=== PATIENT | female | born 1960 | race Caucasian/White ===

== ENCOUNTER → 2020-01-23 14:51 | Outpatient (CLI) | payer OTHER, SELFPAY ==
--- NOTE | 2020-01-23 15:11 | RAD_ITS ---
STUDY: X-RAY - PELVIS REASON FOR EXAM: Female, 59 years old. inflammatory polyarthropathy TECHNIQUE: One view of the pelvis was obtained. COMPARISON: None. FINDINGS: There is a non-specific bowel gas pattern. Surgical clips are seen in the left inguinal region. Normal bilateral iliac wings, sacroiliac joints and visualized sacrum. Normal visualized bilateral superior and inferior pubic rami. Normal pubic symphysis. Normal ischial tuberosities. Normal visualized right femoral head. Normal right acetabulum. Normal right hip joint. Normal visualized left femoral head. Normal left acetabulum. Normal left hip joint. RAD/Pelvis 1 or 2 Views IMPRESSION: Normal x-ray examination of the pelvis. Electronically Signed: Pedro Solano MD at 22:31 EST , Service support ,
[2020-01-23 17:45] LABS: Absolute Lymphocyte Count 2.48 X10^3/uL (0.83-4.51); Absolute Neutrophil Count 5.9 X10^3/uL (2.0-7.7); Basophil# 0.12 X10^3/uL; Basophil% 1.3 % (0-1); Eosinophil# 0.36 X10^3/uL; Eosinophils% 3.8 % (0-5); Hematocrit 42.3 % (37-47); Hemoglobin 13.4 g/dL (12.0-15.0); Lymphocyte # 2.48 X10^3/ul (4.0); Lymphocyte % 26.1 % (19-41); Mean Corp Hgb Conc 31.7 g/dL (32-36); Mean Corpuscular Hgb 27.6 pg (27.0-32.0); Mean Corpuscular Volume 87.2 fL (81-99); Mean Platelet Vol. 10.3 fl (6.2-12.0); Monocyte# 0.61 X10^3/uL; Monocyte% 6.4 % (0-10); NRBC Flagged by Analyzer 0 % (0-5); Neutrophil # 5.88 X10^3/uL (2.7-7.7); Platelet Count 399 K/mm3 (150-450); RBC Distribution Width CV 13.7 % (11.6-14.6); Red Blood Count 4.85 M/mm3 (4.2-5.4); White Blood Count 9.5 K/mm3 (4.4-11.0)
[2020-01-23 17:59] LABS: ALB/GLOB Ratio 0.9 RATIO (0.9-2.4); AST(SGOT) 25 U/L (15-37); Alanine Aminotransfer ALT/SGPT 27 U/L (13-56); Albumin, Serum 3.6 g/dL (3.2-5.0); Alkaline Phosphatase 142 U/L (45-117); Anion Gap 7 (5-15); BUN 13 mg/dL (7-18); BUN/Creat Ratio 16.3 RATIO (10-20); CRP < 2.90 mg/L (0.0-3.0); Calcium,Total 9.1 mg/dL (8.5-10.1); Chloride 104 mmol/L (98-107); EST Glomerular Filtration Rate 78 mL/min (>60); Est Glom Filt Rate - Afr Amer 95 mL/min (>60); Globulin 4.1 g/dL (2.2-4.2); Glucose 88 mg/dL (74-106); Potassium 3.8 mmol/L (3.5-5.1); Protein, Total 7.7 g/dL (6.4-8.2); Rheumatoid Factor < 10.0 IU/mL (<15); Sodium Level 140 mmol/L (136-145)
[2020-01-23 18:18] LABS: Erythrocyte Sedimentation Rate 14 mm/hr (0-30)
[2020-01-26 09:38] LABS: Hepatitis B Surface Antibody Non-Reactive; Hepatitis B Surface Antigen Non-Reactive (Nonreactive); Hepatitis C Antibody Non-Reactive (Nonreactive)
[2020-01-26 18:07] LABS: ANTINUCLEAR ANTIBODIES DIRECT Negative (Negative)
[2020-01-28 12:07] LABS: QNTFERON TB Mitogen Value > 10.00 IU/mL (.); QNTFERON TB Nil Value 0.02 IU/mL (.); QNTFERON TB1+ Ag Value 0.03 IU/mL (.); QNTFERON TB2+ Ag Value 0.02 IU/mL (.)
[2020-01-28 16:35] LABS: CCP IgG Antibodies 10 units (0-19); HLA B27 Negative (.); Hepatitis B Core AB IgM Negative (Negative); QNTIFERON TB Positive Criteria Negative (Negative)
== END ==
PROVIDERS: PCP Family Medicine; Referring Provider Internal Medicine Rheumatology; Visit Provider Internal Medicine Rheumatology
DX: M06.4 Inflammatory polyarthropathy (principal); M79.7 Fibromyalgia; M18.0 Bilateral primary osteoarthritis of first carpometacarpal joints; M21.40 Flat foot [pes planus] (acquired), unspecified foot; K21.9 Gastro-esophageal reflux disease without esophagitis; K22.70 Barrett's esophagus without dysplasia; K44.9 Diaphragmatic hernia without obstruction or gangrene; Z85.71 Personal history of Hodgkin lymphoma; Z92.21 Personal history of antineoplastic chemotherapy
CPT/HCPCS: 36415; 72170; 80053; 81374; 85025; 85652; 86038; 86140; 86200; 86431; 86480; 86705; 86706; 86803; 87340

== ENCOUNTER 2020-06-15 13:46 | Emergency (ER) | payer OTHER, SELFPAY ==
[2020-06-15] VITALS (8 sets, daily range): BP systolic 169–201; BP diastolic 70–94; PULSE 55–61; RESP 13–18; TEMP 37; O2SAT 98–100; BMI 39.6
--- NOTE | 2020-06-15 14:06 | EKG12_ITS ---
Test Reason : REPEAT CP Blood Pressure : / mmHG Vent. Rate : 055 BPM Atrial Rate : 055 BPM P-R Int : 134 ms QRS Dur : 088 ms QT Int : 484 ms P-R-T Axes : 045 034 046 degrees QTc Int : 463 ms Sinus bradycardia Otherwise normal ECG Confirmed by NINO SIMS ([id number]), fan mail editor CHRYSTAL THOMAS ([id number]) on 06/21/2020 12:11:37 PM Referred By: WALTER Confirmed By:NINO SIMS
--- NOTE | 2020-06-15 14:06 | RAD_ITS ---
STUDY: X-RAY CHEST REASON FOR EXAM: Female, 60 years old. CHEST PAIN, WAS IN AFIB YESTERDAY -- CP TODAY TECHNIQUE: Single AP portable view of the chest. COMPARISON: None. FINDINGS: EKG leads overlie the chest The lungs are clear and expanded. There is no demonstrated pleural abnormality. Sternal cerclage wires and vascular clips are present from a prior sternotomy and coronary artery bypass graft procedure (CABG). Normal mediastinum and fransisco. Normal visualized pulmonary arteries. Normal visualized aortic arch and descending thoracic aorta. Normal visualized thoracic spine. Normal visualized ribs, clavicles, and shoulders. There is no demonstrated abnormality of the visualized soft tissue structures of the upper abdomen. RAD/Chest 1 View (Portable) IMPRESSION: No acute pulmonary process Electronically Signed: Samuel Escobedo MD at 15:06 EDT , Service support ,
[2020-06-15] MEDS: Nitroglycerin SL (ED/IMG/CATH) 0.4 MG TABLET SUBLINGUAL (14:23)
[2020-06-15] MEDS: 0.9% Normal Saline 1,000 ML 150 ML IV (14:24)
[2020-06-15 14:35] LABS: Absolute Lymphocyte Count 2.84 X10^3/uL (0.83-4.51); Absolute Neutrophil Count 6.2 X10^3/uL (2.0-7.7); Basophil# 0.07 X10^3/uL; Basophil% 0.7 % (0-1); Eosinophil# 0.18 X10^3/uL; Eosinophils% 1.8 % (0-5); Hematocrit 42.1 % (37-47); Hemoglobin 13.2 g/dL (12.0-15.0); Lymphocyte # 2.84 X10^3/ul (4.0); Lymphocyte % 28.2 % (19-41); Mean Corp Hgb Conc 31.4 g/dL (32-36); Mean Corpuscular Hgb 28.1 pg (27.0-32.0); Mean Corpuscular Volume 89.6 fL (81-99); Mean Platelet Vol. 10.1 fl (6.2-12.0); NRBC Flagged by Analyzer 0 % (0-5); Neutrophil % 61.6 % (47-70); Platelet Count 375 K/mm3 (150-450); RBC Distribution Width SD 48.2 fl (35.1-43.9); White Blood Count 10.1 K/mm3 (4.4-11.0)
--- NOTE | 2020-06-15 14:46 | ED.DCSUM_ITS ---
- ER Visit Summary Date of Service: 06/15/20 Chief Complaint: Chest pain History of Present Illness: The patient is a [address] Hamilton Liao. Her helminthology teacher is Dr. De Jesus in [place]. Reports that at 1:00 this afternoon while at rest she had the onset of substernal chest pain that radiates up into her neck into her right shoulder. She describes it as a pressure. 7 on 10 at worst and 3-10 currently. Is worsened by nothing. However, she did not walk with this. Is also relieved by nothing. She has had nausea without vomiting. No diaphoresis or shortness of breath. No palpitations or lightheadedness. Patient reports that she has a history of atrial fibrillation and is on Eliquis and sotalol. She states she was in and out of atrial fibrillation yesterday. She denies any chest pain or change in dyspnea exertion in the past month. Physical Examination: Vitals: Stable. Afebrile. General: Well-nourished and well-developed. Head: Normocephalic atraumatic. Neck: Supple, no lymphadenopathy. No JVD. Nontender. Cardiovascular: Regular rate and rhythm. No murmurs. Respiratory: No respiratory distress. Clear to auscultation bilaterally. Abdominal: Soft, nontender, nondistended, normal bowel sounds. No guarding, rebound, or peritoneal signs. Back: Nontender. Extremities: Nontender, no edema. Skin: Normal color, no rash. Neurologic: Alert and oriented ?3. Cranial nerves II through XII are intact. Normal strength and sensation. Psych: Normal affect. Test Results: EKG sinus bradycardia 57 with no acute changes. CBC is normal. Chem-7 shows a CO2 of 34. Initial troponin is negative. Repeat troponin is negative. Repeat EKG is unchanged. Clinical Impression(s) from Imaging Studies Chest X-Ray 06/15/20 14:06 IMPRESSION: No acute pulmonary process Electronically Signed: Samuel Escobedo MD at 15:06 EDT , Service support , Abdomen CTA 06/15/20 15:48 IMPRESSION: 1. No demonstrated hemodynamically significant stenosis or occlusion or aneurysm or dissection. Mild scattered calcified plaque is present. 2. No visualized periaortitis or evidence of leakage or retroperitoneal hemorrhage. 3. No demonstrated acute or significant intra-abdominal process. Electronically Signed: Gurmeet Hahn MD at 16:34 EDT , Service support , Chest CTA 06/15/20 15:48 IMPRESSION: 1. No demonstrated hemodynamically significant stenosis or occlusion or aneurysm or dissection. Mild scattered calcified plaque is present. 2. No visualized periaortitis or evidence of leakage or retroperitoneal hemorrhage. 3. No demonstrated acute or significant intra-abdominal process. Electronically Signed: Gurmeet Hahn MD at 16:34 EDT , Service support , Emergency Department Course and Treatment: Patient was given aspirin by squad. She was given a sublingual nitroglycerin here and her pain went from a 3 to a 0. She had an inch of Nitropaste placed. She was given a dose of ibuprofen for headache following the nitro. Treatment Plan: The patient is resting comfortably. She was discussed with her helminthology teacher, Dr. De Jesus, who feels comfortable having the patient discharged instructed to follow-up the office as soon as possible. Return to the emergency department for any worsening symptoms. Disposition: To home in improved and stable condition. Impression: 1. Chest pain, uncertain cause. 2. DENISE score of 4. This note was generated with [employer] dictation software. It may contain incorrect words, spelling, and punctuation that were not noted in review of the chart prior to signing ED Disposition - Plan for ED Patient: Instructions: ED Chest Pain Atypical Unkn Cause Additional Instructions: Follow-up with Dr. De Jesus as soon as possible.
[2020-06-15 14:51] LABS: Anion Gap 2 (5-15); BUN 11 mg/dL (7-18); BUN/Creat Ratio 12.8 RATIO (10-20); Calcium,Total 9.3 mg/dL (8.5-10.1); Chloride 105 mmol/L (98-107); Creatinine, Serum 0.86 mg/dL (0.55-1.02); EST Glomerular Filtration Rate 72 mL/min (>60); Est Glom Filt Rate - Afr Amer 87 mL/min (>60); Estimated Creatinine Clearance 63.38 ml/min; Glucose 97 mg/dL (74-106); Potassium 4.1 mmol/L (3.5-5.1); Sodium Level 141 mmol/L (136-145)
[2020-06-15] MEDS: Ibuprofen 600 MG Tablet PO (15:03)
[2020-06-15] MEDS: Nitroglycerin Oint 1 INCH PACKET TRANSDERM. (15:04)
--- NOTE | 2020-06-15 15:48 | CT_ITS ---
STUDY: CTA CHEST REASON FOR EXAM: Female, 60 years old. SPLITTING CP WHILE AT DR OFFICE, ? DISSECTION, HAD ABLATION 11/13, A-FIB, CABG, ON ELIQUIS, FORMER SMOKER, HTN, SLEEP APNEA RADIATION DOSAGE (If Supplied By Facility): CTDIvol = ( 16.5 ) mGy, DLP = ( 949.05 ) mGycm TECHNIQUE: The examination was performed with the intravenous administration of 100ML ISOVUE 370. Post-processing of the angiographic images was performed, with multiplanar reformation and 3D reconstruction. Individualized dose optimization techniques were used for this CT. COMPARISON: CTA of the abdomen dated June 15, 2020 FINDINGS: Normal enhancement of the main pulmonary artery and right and left pulmonary arteries. Normal enhancement of the bilateral peripheral pulmonary arteries. There is no demonstrated pulmonary embolism. There is atherosclerotic calcification of the aortic arch with tortuosity. There is no demonstrated aortic dissection or aneurysm. Sternal cerclage wires and vascular clips are present from a prior sternotomy and coronary artery bypass graft procedure (CABG). Normal heart size. No pericardial effusion. Normal mediastinum. Normal hilar regions. Normal visualized trachea and bronchi. The lungs are well expanded. Normal pulmonary parenchyma. No demonstrated consolidation or pulmonary edema or pleural effusion. No nodules. Normal pleura. Normal chest wall structures. There are degenerative changes of thoracic spine. Unremarkable visualized upper abdomen. Hiatal hernia noted. CT/CTA Chest W/WO Contrast IMPRESSION: 1. No demonstrated pulmonary embolism or arterial dissection. 2. No demonstrated consolidation or pulmonary edema or pleural effusion. No nodules. Electronically Signed: Gurmeet Hahn MD at 16:44 EDT , Service support ,
--- NOTE | 2020-06-15 15:48 | CT_ITS ---
STUDY: CTA OF THE ABDOMEN REASON FOR EXAM: Female, 60 years old. SPLITTING CP, ? DISSECTION, HX-CABG,SLEEP APNEA, ABLATION 11/13, FORMER SMOKER, HTN, ON ELIQUIS RADIATION DOSAGE (If Supplied By Facility): CTDIvol = ( 16.5 ) mGy, DLP = ( 949.05 ) mGycm TECHNIQUE: Axial CT angiography multi-detector data acquisition was obtained following intravenous administration of 100ML ISOVUE 370. Axial images and MIP images were reconstructed from the axial data set. Post-processing of the angiographic images was performed, with multiplanar reformation and 3D reconstruction. Individualized dose optimization techniques were used for this CT. TECHNICAL QUALITY: Good COMPARISON: None. Descriptors of Narrowing: None (0%) Mild (< 50%) Moderate (50-70%) Severe (70-90%) Subtotal/Total Occlusion (90-100%) Non-Evaluable (technically non-diagnostic FINDINGS: Abdominal aorta: No demonstrated hemodynamically significant stenosis or occlusion or aneurysm or dissection. Mild scattered calcified plaque is present. No visualized periaortitis or evidence of leakage or retroperitoneal hemorrhage. Celiac and superior mesenteric arteries: No demonstrated narrowing. Inferior mesenteric artery: No demonstrated narrowing. Right renal artery(arteries): No demonstrated narrowing. Left renal artery(arteries): No demonstrated narrowing. Right common iliac artery: No demonstrated narrowing. Right external iliac artery: No demonstrated narrowing. Right internal iliac artery: No demonstrated narrowing. Left common iliac artery: No demonstrated narrowing. Left external iliac artery: No demonstrated narrowing. Left internal iliac artery: No demonstrated narrowing. NONVASCULAR FINDINGS: The visualized lung bases are unremarkable. Median sternotomy wires and CABG clips are present. Normal liver. Normal gallbladder and extrahepatic biliary system. Normal spleen. Normal pancreas. Normal bilateral adrenal glands. Normal right kidney. Normal left kidney. A moderate size hiatal hernia is present. Normal small intestine. Normal colon. There is non-visualization of the appendix. Normal inferior vena cava. Normal retroperitoneum. Normal abdominal wall. There are diffuse degenerative changes of the visualized lumbar spine. CT/CTA Abdomen W/WO Contrast IMPRESSION: 1. No demonstrated hemodynamically significant stenosis or occlusion or aneurysm or dissection. Mild scattered calcified plaque is present. 2. No visualized periaortitis or evidence of leakage or retroperitoneal hemorrhage. 3. No demonstrated acute or significant intra-abdominal process. Electronically Signed: Gurmeet Hahn MD at 16:34 EDT , Service support ,
[2020-06-15] MEDS: Morphine 4 MG/ML Syringe IV (16:42)
--- NOTE | 2020-06-15 16:44 | EKG12_ITS ---
Test Reason : CP Blood Pressure : / mmHG Vent. Rate : 057 BPM Atrial Rate : 057 BPM P-R Int : 124 ms QRS Dur : 090 ms QT Int : 476 ms P-R-T Axes : 033 033 038 degrees QTc Int : 463 ms Sinus bradycardia Otherwise normal ECG Confirmed by NINO SIMS ([id number]), editor at large CHRYSTAL THOMAS ([id number]) on 06/21/2020 12:11:49 PM Referred By: FAB Confirmed By:NINO SIMS
== END 2020-06-15 19:39 | disposition home or self-care (01) ==
LOC: ED 14:54
PROVIDERS: Emergency Provider Emergency Medicine; PCP Family Medicine
DX: R07.9 Chest pain, unspecified (principal); R00.1 Bradycardia, unspecified; Z79.01 Long term (current) use of anticoagulants; I48.91 Unspecified atrial fibrillation; Z79.899 Other long term (current) drug therapy; Z79.82 Long term (current) use of aspirin; R11.0 Nausea; I25.10 Atherosclerotic heart disease of native coronary artery without angina pectoris; I10 Essential (primary) hypertension; G47.33 Obstructive sleep apnea (adult) (pediatric); Z95.1 Presence of aortocoronary bypass graft
CPT/HCPCS: 71045; 71275; 74175; 80048; 84484; 85025; 93005; 96361; 96374; 99285; J7030; Q9967; A4216

== ENCOUNTER 2021-03-25 22:44 | Emergency (ER) | payer OTHER, SELFPAY ==
[2020-06-15 13:48] VITALS: BMI 39.6
[2021-03-25 22:45] VITALS: BP 184/86; PULSE 63; RESP 18; TEMP 35.8; O2SAT 100; BMI 36.8
--- NOTE | 2021-03-25 22:59 | CT_ITS ---
EXAM: CT CHEST, ABDOMEN AND PELVIS WITH INTRAVENOUS CONTRAST : 1960 CLINICAL INDICATION: Fall off horse, upper abd pain/back pain TECHNIQUE: Helically acquired images were obtained of the chest, abdomen and pelvis with intravenous contrast. This CT exam was performed using one or more of the following dose reduction techniques: automated exposure control, adjustment of the mA and/or kV according to patient size, and/or use of iterative reconstruction technique. This report was created using [employer] report generation technology. CONTRAST: IV 100mL Isovue-300 COMPARISON: 06/15/2020 FINDINGS: CHEST: LUNGS AND PLEURAL SPACES: Unremarkable. No mass. No consolidation or edema. No pleural effusion or thickening. No pneumothorax. HEART: Unremarkable. Heart size is normal. No pericardial effusion. MEDIASTINUM: There is a small to moderate hiatal hernia. No mediastinal or hilar adenopathy. Esophagus is unremarkable. THYROID: Unremarkable. No thyroid lesions. ABDOMEN: LIVER: Unremarkable. Homogeneous. No focal mass. GALLBLADDER AND BILE DUCTS: Unremarkable. No calcified gallstones. No gallbladder distention or wall edema. No intra- or extrahepatic biliary ductal dilation. PANCREAS: Unremarkable. No focal cystic or solid mass. SPLEEN: Unremarkable. Normal size without focal cystic or solid mass. ADRENALS: Unremarkable. No nodules. KIDNEYS AND URETERS: Unremarkable. Normal renal size and position. No hydronephrosis. STOMACH AND BOWEL: Unremarkable. No stomach or bowel distention. No focal inflammatory change. PELVIS: APPENDIX: No evidence of acute appendicitis. BLADDER: Unremarkable. REPRODUCTIVE: Unremarkable as visualized. No mass. CHEST, ABDOMEN and PELVIS: INTRAPERITONEAL SPACE: Unremarkable. No ascites or other fluid collection. No free air. BONES/JOINTS: Unremarkable. No suspicious lytic or blastic abnormality. SOFT TISSUES: Unremarkable. No discrete abdominal or pelvic wall hernia. VASCULATURE: Unremarkable. Aorta is non-dilated. No aortic dissection. No obvious central pulmonary embolism although this study was not performed with the pulmonary embolism protocol. LYMPH NODES: Unremarkable. No enlarged lymph nodes. CT/CT Chest, Abd, Pel w/Contrast IMPRESSION: No acute findings in the chest, abdomen or pelvis. Individualized dose optimization techniques were used for this CT. at 0013 Reported and signed by: Stanislaw Meyer MD Electronically Signed: Stanislaw Meyer MD at 0:12 EDT Tel , Service support ,
--- NOTE | 2021-03-25 23:03 | EX.ED.DYSGE1 ---
HPI History of Present Illness Chief Complaint: Trauma Informant: patient Narrative Narrative: Patient is a 61-year-old female who presents to the emergency department after a fall off of a horse. She states that she landed directly on her back. She did feel a pop whenever she landed. She is complaining of right-sided back pain in the lower thoracic region. She is also having epigastric abdominal pain. She currently rates her pain as an 8 out of 10. Sometimes the pain does spasm and gets up to a 20 out of 10. She did take a muscle relaxer as well as Tylenol which has not given her significant relief. She believes she did hit her head but is denying a headache or any neck pain. She denies any pain in her extremities. She has been able to ambulate on her own power. She denies any chest pain or shortness of breath. No urinary symptoms. She is on aspirin as well as Eliquis with a history of atrial fibrillation. [facility] Medical History (Updated 03/26/21 @ 00:[address] Frank Stewart, ) Anemia Atrial fibrillation Verma's esophagus Gastroparesis Hiatal hernia High cholesterol Hypertension Lymphoma Home Medications Potassium Chloride [Klor-Con M20] 20 meq PO BID 06/15/20 [History Last Taken 06/15/20] Prednisone 10 mg PO DAILY PRN PRN 06/15/20 [History Last Taken 06/13/20] acarbose 50 mg PO TIDCM 06/15/20 [History Last Taken 06/14/20] apixaban 5 mg PO BID 06/15/20 [History Last Taken 06/15/20] atorvastatin 40 mg PO QHS 06/15/20 [History Last Taken 06/14/20] duloxetine 60 mg PO DAILY 06/15/20 [History Last Taken 06/14/20] folic acid 2 mg PO DAILY 06/15/20 [History Last Taken 06/15/20] leucovorin calcium 15 mg PO WE 06/15/20 [History Last Taken 06/09/20] losartan 100 mg PO DAILY 06/15/20 [History Last Taken 06/15/20] methotrexate sodium (PF) 0.75 ml IJ WE 06/15/20 [History Last Taken 06/09/20] mirtazapine 15 mg PO QHS 06/15/20 [History Last Taken 06/14/20] nitroglycerin 0.4 mg SUBLINGUAL Q5M PRN 06/15/20 [History Last Taken Unknown] plecanatide 3 mg PO QHS 06/15/20 [History Last Taken 06/14/20] amlodipine 2.5 mg PO DAILY 03/25/21 [History Last Taken Unknown] hydroxychloroquine [Plaquenil] 200 mg PO DAILY 03/25/21 [History Last Taken Unknown] Allergy/AdvReac Type Severity Reaction Status Date / Time PLASTIC TAPE AdvReac Rash Uncoded 03/25/21 22:50 Surgical History H/O: hysterectomy History of [place] fundoplication Hx of appendectomy Hx of CABG Social History Smoking Status: Former smoker ROS ROS ED Constitutional Constitutional ED: Denies chills or fever(s) Eyes Eyes: Denies change in vision ENT ENT ED: Denies epistaxis or rhinorrhea Cardiovascular Cardiovascular: Denies chest pain or palpitations Respiratory/Chest Respiratory/Chest: Denies cough, dyspnea or dyspnea on exertion Gastrointestinal Gastrointestinal: Reports abdominal pain; Denies diarrhea, nausea or vomiting Genitourinary Genitourinary ED: Denies hematuria Musculoskeletal Musculoskeletal: Reports back pain; Denies neck pain Integumentary Denies Abrasions or rash Neurologic Neurologic: Denies dizziness, headache(s) or weakness EXAM Physical Exam Const Vital Signs: 03/25/21 22:45 03/25/21 22:56 03/26/21 00:22 Temperature 96.5 F L Temperature Source Temporal Pulse Rate 63 68 Respiratory Rate 18 12 Respiratory Effort Normal Non-Labored Respiratory Depth Normal Respiratory Pattern Normal Blood Pressure 184/86 H 175/95 H Blood Pressure Mean 118 121 Pulse Ox 100 95 Oxygen Delivery Method Room Air Room Air Positive well nourished and well developed General Appearance ED: well developed and NAD HEENT Reports normocephalic, head/scalp atraumatic and moist mucous membranes Eyes PERRL and EOMs intact bilaterally Neck no lymphadenopathy and supple General: Negative for tenderness Chest Wall inspection of chest normal and palpation of chest normal Resp normal respiratory effort and clear to auscultation bilaterally Auscultation: Negative for rales, rhonchi or wheezes Cardio regular rate, regular rhythm and no murmurs GI normal to inspection, nondistended, normoactive bowel sounds Palpation: soft and tender epigastric and RUQ; Negative for guarding or rebound tenderness present Back/Spine no CVA tenderness Cervical Spine: Negative for cervical spine tenderness Thoracic Spine / Upper Back: paraspinal muscle tenderness right; Negative for thoracic spinal tenderness Lumbar Spine / Lower Back: Negative for lumbar spinal tenderness Extremity normal to inspection Extremity Narrative: Ambulate under her own power. 5 out of 5 muscle strength throughout. Neurovascularly intact. General Extremety ED: Negative for edema or tenderness General Extremity: Negative for edema Neuro oriented x3, CN's II-XII intact bilaterally and no sensory deficits noted Sensorium / Orientation: alert Motor Exam: strength 5/5 throughout Psych mental status grossly normal Skin no rashes or lesions noted Trauma: Negative for abrasion Wounds: Negative for wounds noted MDM MDM MDM Narrative Medical decision making narrative: Patient presents to the ED after a fall off of a horse around 8 PM. She is complaining of right-sided back pain as well as epigastric abdominal pain. She is anticoagulated. She believes she did hit her head but denies any headache, neck pain. Vital signs show she is hypertensive but otherwise are normal. She is in no acute distress. She is complaining of significant pain so we will treat this with morphine. Will check basic lab work as well as CT imaging. Patient's lab work-up did not reveal the patient to be anemic. Her lipase is within normal limits. Troponin is negative. CT imaging did not reveal any acute intracranial abnormality. CT scan of the chest/abdomen/pelvis did not show any acute traumatic finding. At this time do believe patient is stable for discharge. Will recommend symptomatic treatment in the meantime. She is to follow-up with her PCP. If she develops any worsening pain she is to return to the emergency department. She understands and is agreeable this plan. Will discharge home in stable condition. All questions answered. Lab Data Labs: Laboratory Results - last 24 hr 03/25/21 03/25/21 23:15 23:15 WBC 14.3 H RBC 4.79 Hgb 13.7 Hct 42.4 MCV 88.5 MCH 28.6 MCHC 32.3 RDW Std Deviation 50.4 H RDW Coeff of Flor 15.6 H Plt Count 306 MPV 9.8 Immature Gran % (Auto) 1.100 H Neut % (Auto) 77.9 H Lymph % (Auto) 13.9 L Dolores % (Auto) 5.7 Eos % (Auto) 0.9 Baso % (Auto) 0.5 Absolute Neuts (auto) 11.1 H Absolute Lymphs (auto) 1.99 Nucleated RBC % 0 Sodium 140 Potassium 3.6 Chloride 107 Carbon Dioxide 26.0 Anion Gap 7 BUN 11 Creatinine 0.74 Estim Creat Clear Calc 72.75 Est GFR (MDRD) Af Amer 102 Est GFR (MDRD) Non-Af 85 BUN/Creatinine Ratio 14.8 Glucose 108 H Calcium 8.9 Total Bilirubin 0.50 AST 31 ALT 49 Alkaline Phosphatase 128 H Troponin I 0.024 Total Protein 7.7 Albumin 3.8 Globulin 3.9 Albumin/Globulin Ratio 1.0 Lipase 73 Radiography Diagnostic Testing: Radiology Impression Chest/Abdomen/Pelvis CT 03/25/21 22:59 IMPRESSION: No acute findings in the chest, abdomen or pelvis. Individualized dose optimization techniques were used for this CT. at 0013 Reported and signed by: Stanislaw Meyer MD Electronically Signed: Stanislaw Meyer MD at 0:12 EDT Tel , Service support , Brain CT 03/25/21 23:38 IMPRESSION: Negative head/brain CT without intravenous contrast. Individualized dose optimization techniques were used for this CT. at 0010 Reported and signed by: Stanislaw Meyer MD Electronically Signed: Stanislaw Meyer MD at 0:09 EDT Tel , Service support , Discharge Plan Triage Chief Complaint: Trauma Other Complaint: Fall ED Provider: Frank Stewart Dx/Rx/DC Orders Clinical Impression: Fall from horse, Abdominal pain, Back pain Instructions: ED RICE Prescriptions: No Action losartan 50 MG tablet 100 mg PO DAILY RF: 0 atorvastatin 40 mg tablet 40 mg PO QHS RF: 0 acarbose 50 MG tablet 50 mg PO TIDCM RF: 0 leucovorin calcium 15 mg tablet 15 mg PO WE RF: 0 nitroglycerin 0.4 MG tablet, sublingual 0.4 mg sublingual Q5M PRN (Reason: Chest Pain) RF: 0 folic acid 1 MG tablet 2 mg PO DAILY RF: 0 mirtazapine 15 MG tablet 15 mg PO QHS RF: 0 methotrexate sodium (PF) 25 MG/ML solution 0.75 ml IJ WE RF: 0 duloxetine 60 MG capsule,delayed release(DR/EC) 60 mg PO DAILY RF: 0 apixaban 5 mg tablet 5 mg PO BID RF: 0 plecanatide 3 mg tablet 3 mg PO QHS RF: 0 Potassium Chloride [Klor-Con M20] 20 MEQ Tab.Er.Prt 20 meq PO BID RF: 0 Prednisone 10 MG tablet 10 mg PO DAILY PRN PRN (Reason: arthritis) RF: 0 amlodipine 2.5 mg Tablet 2.5 mg PO DAILY RF: 0 hydroxychloroquine [Plaquenil] 200 mg Tablet 200 mg PO DAILY RF: 0 Primary Care Provider: Care Physician,No Primary Referrals: Care Physician,No Primary [Primary Care Provider] - 2 Days Disposition Disposition: Home, self care Discharge Date/Time: 03/26/21 00:55
[2021-03-25] MEDS: Morphine 4 MG/ML Syringe IV (23:13)
--- NOTE | 2021-03-25 23:38 | CT_ITS ---
EXAM: CT HEAD WITHOUT INTRAVENOUS CONTRAST : 1960 CLINICAL INDICATION: Hit head, fall off horse TECHNIQUE: Multiple axial images were obtained of the head without intravenous contrast. This CT exam was performed using one or more of the following dose reduction techniques: automated exposure control, adjustment of the mA and/or kV according to patient size, and/or use of iterative reconstruction technique. This report was created using [employer] report generation technology. COMPARISON: None. FINDINGS: BRAIN AND EXTRA-AXIAL SPACES: Unremarkable. No intra- or extra-axial hemorrhage. No evidence of acute infarct. No intracranial mass or mass effect. There is preservation of the davison/white matter interface. Posterior fossa structures are unremarkable. Ventricles are appropriate for age. No hydrocephalus. Basal cisterns are patent. BONES/JOINTS: Unremarkable. No discrete lytic or blastic abnormalities. SINUSES: Unremarkable as visualized. Clear. MASTOID AIR CELLS: Unremarkable. Clear. ORBITS: Visualized globes, extraocular muscles, optic nerves and retrobulbar fat appear unremarkable. CT/Brain/Head without Contrast IMPRESSION: Negative head/brain CT without intravenous contrast. Individualized dose optimization techniques were used for this CT. at 0010 Reported and signed by: Stanislaw Meyer MD Electronically Signed: Stanislaw Meyer MD at 0:09 EDT Tel , Service support ,
[2021-03-25 23:52] LABS: Absolute Lymphocyte Count 1.99 X10^3/uL (0.83-4.51); Absolute Neutrophil Count 11.1 X10^3/uL (2.0-7.7); Basophil# 0.07 X10^3/uL; Basophil% 0.5 % (0-1); Eosinophil# 0.13 X10^3/uL; Eosinophils% 0.9 % (0-5); Hematocrit 42.4 % (37-47); Hemoglobin 13.7 g/dL (12.0-15.0); Lymphocyte # 1.99 X10^3/ul (0.83-4.51); Lymphocyte % 13.9 % (19-41); Mean Corp Hgb Conc 32.3 g/dL (32-36); Mean Corpuscular Hgb 28.6 pg (27.0-32.0); Mean Corpuscular Volume 88.5 fL (81-99); Mean Platelet Vol. 9.8 fl (6.2-12.0); Monocyte# 0.82 X10^3/uL; Monocyte% 5.7 % (0-10); NRBC Flagged by Analyzer 0 % (0-5); Neutrophil # 11.12 X10^3/uL (2.7-7.7); Neutrophil % 77.9 % (47-70); Platelet Count 306 K/mm3 (150-450); RBC Distribution Width CV 15.6 % (11.6-14.6); RBC Distribution Width SD 50.4 fl (35.1-43.9); Red Blood Count 4.79 M/mm3 (4.2-5.4); White Blood Count 14.3 K/mm3 (4.4-11.0)
[2021-03-25 23:55] LABS: AST(SGOT) 31 U/L (15-37); Alanine Aminotransfer ALT/SGPT 49 U/L (13-56); Albumin, Serum 3.8 g/dL (3.2-5.0); Alkaline Phosphatase 128 U/L (45-117); Anion Gap 7 (5-15); BUN 11 mg/dL (7-18); BUN/Creat Ratio 14.8 RATIO (10-20); Calcium,Total 8.9 mg/dL (8.5-10.1); Chloride 107 mmol/L (98-107); Creatinine, Serum 0.74 mg/dL (0.55-1.02); EST Glomerular Filtration Rate 85 mL/min (>60); Est Glom Filt Rate - Afr Amer 102 mL/min (>60); Estimated Creatinine Clearance 72.75 ml/min; Globulin 3.9 g/dL (2.2-4.2); Glucose 108 mg/dL (74-106); Lipase 73 U/L (73-393); Potassium 3.6 mmol/L (3.5-5.1); Protein, Total 7.7 g/dL (6.4-8.2); Sodium Level 140 mmol/L (136-145)
[2021-03-26 00:22] VITALS: BP 175/95; PULSE 68; RESP 12; O2SAT 95
[2021-03-26] MEDS: Ibuprofen 600 MG Tablet PO (00:50)
== END 2021-03-26 00:55 | disposition home or self-care (01) ==
PROVIDERS: Emergency Provider Emergency Medicine
DX: R10.13 Epigastric pain (principal); M54.9 Dorsalgia, unspecified; V80.010A Animal-rider injured by fall from or being thrown from horse in noncollision accident, initial encounter; Y93.52 Activity, horseback riding; Y92.9 Unspecified place or not applicable; I10 Essential (primary) hypertension; I48.91 Unspecified atrial fibrillation; E78.00 Pure hypercholesterolemia, unspecified; Z86.2 Personal history of diseases of the blood and blood-forming organs and certain disorders involving the immune mechanism; Z85.72 Personal history of non-Hodgkin lymphomas; Z87.19 Personal history of other diseases of the digestive system; Z95.1 Presence of aortocoronary bypass graft; Z79.01 Long term (current) use of anticoagulants; Z79.82 Long term (current) use of aspirin; Z79.899 Other long term (current) drug therapy; Z87.891 Personal history of nicotine dependence
CPT/HCPCS: 70450; 71260; 74177; 80053; 83690; 84484; 85025; 96374; 99284; Q9967; A4216